=== PATIENT | female | born 1955 | race Caucasian/White ===

== ENCOUNTER 2017-01-23 18:59 | Emergency (ER) | payer MEDICARE, OTHER ==
[2017-01-23 20:12] LABS: HEMOGLOBIN 12.9 gm/dl (12.3-15.3); RED BLOOD COUNT 4.26 M/UL (4.00-5.10); WHITE BLOOD COUNT 9.6 K/UL (4.5-11.0)
[2017-01-23 20:31] LABS: BUN/CREATININE RATIO 25 (0-10)
[2017-01-24] MEDS ORDERED: NEURONTIN 300300 MG PO (21:57)
[2017-01-24] MEDS ORDERED: ALPRAZOLAM0.5 MG PO (21:57)
[2017-01-24] MEDS ORDERED: BYDUREON P2 MG/0.65 SQ (21:58)
[2017-01-24] MEDS ORDERED: LORTAB 7.5-3251 EACH PO (21:58)
[2017-01-24] MEDS ORDERED: LOSARTAN POTASS50 MG PO (21:58)
[2017-01-24] MEDS ORDERED: NORVASC 5 MG TAB5 MG PO (21:59)
[2017-01-24] MEDS ORDERED: VENLAFAXINE HC150 M1 PO (21:59)
[2017-01-24] MEDS ORDERED: GLUCOPHAGE1000 MG PO (21:59)
[2017-01-24] MEDS ORDERED: OMEGA 3 FISH O1 EACH PO (22:00)
[2017-01-24] MEDS ORDERED: NIACIN500 MG PO (22:00)
[2017-01-24] MEDS ORDERED: VITAMIN D350000 UNIT PO (22:01)
== END 2017-01-23 22:30 | disposition left against medical advice (07) ==
LOC: ER1 18:59
PROVIDERS: Family Medicine
DX: R53.1 Weakness (principal); I10 Essential (primary) hypertension; E11.9 Type 2 diabetes mellitus without complications; Z79.4 Long term (current) use of insulin; Z79.84 Long term (current) use of oral hypoglycemic drugs; Z79.899 Other long term (current) drug therapy
CPT/HCPCS: 36415; 70450; 71010; 80053; 82550; 82553; 82962; 83874; 84484; 85025; 85610; 85730; 99284

== ENCOUNTER 2017-01-24 12:27 | Inpatient (IN) | payer MEDICARE, OTHER ==
[~2017-01-24] VITALS: Ht 167.6 cm; Wt 108.0 kg
[2017-01-24 13:21] LABS: HEMOGLOBIN 14.5 gm/dl (12.3-15.3); WHITE BLOOD COUNT 10.4 K/UL (4.5-11.0)
[2017-01-24 13:23] LABS: RED BLOOD COUNT 4.76 M/UL (4.00-5.10)
[2017-01-24 13:40] LABS: BUN/CREATININE RATIO 22 (0-10)
[2017-01-24] MEDS ORDERED: NEURONTIN 300300 MG PO (21:57)
[2017-01-24] MEDS ORDERED: ALPRAZOLAM0.5 MG PO (21:57)
[2017-01-24] MEDS ORDERED: BYDUREON P2 MG/0.65 SQ (21:58)
[2017-01-24] MEDS ORDERED: LORTAB 7.5-3251 EACH PO (21:58)
[2017-01-24] MEDS ORDERED: LOSARTAN POTASS50 MG PO (21:58)
[2017-01-24] MEDS ORDERED: NORVASC 5 MG TAB5 MG PO (21:59)
[2017-01-24] MEDS ORDERED: GLUCOPHAGE1000 MG PO (21:59)
[2017-01-24] MEDS ORDERED: VENLAFAXINE HC150 M1 PO (21:59)
[2017-01-24] MEDS ORDERED: OMEGA 3 FISH O1 EACH PO (22:00)
[2017-01-24] MEDS ORDERED: NIACIN500 MG PO (22:00)
[2017-01-24] MEDS ORDERED: VITAMIN D350000 UNIT PO (22:01)
[2017-01-25 05:46] LABS: HEMOGLOBIN 13.1 gm/dl (12.3-15.3); RED BLOOD COUNT 4.33 M/UL (4.00-5.10); WHITE BLOOD COUNT 11.1 K/UL (4.5-11.0)
[2017-01-25 06:02] LABS: BUN/CREATININE RATIO 25 (0-10)
[2017-01-26 05:54] LABS: HEMOGLOBIN 12.7 gm/dl (12.3-15.3); RED BLOOD COUNT 4.17 M/UL (4.00-5.10); WHITE BLOOD COUNT 11.2 K/UL (4.5-11.0)
[2017-01-26 06:17] LABS: BUN/CREATININE RATIO 26 (0-10)
[2017-01-27 05:02] LABS: HEMOGLOBIN 12.1 gm/dl (12.3-15.3); RED BLOOD COUNT 4.09 M/UL (4.00-5.10); WHITE BLOOD COUNT 9.3 K/UL (4.5-11.0)
[2017-01-27 05:21] LABS: BUN/CREATININE RATIO 28 (0-10)
[2017-01-28 06:03] LABS: HEMOGLOBIN 12.4 gm/dl (12.3-15.3); RED BLOOD COUNT 4.08 M/UL (4.00-5.10); WHITE BLOOD COUNT 9.8 K/UL (4.5-11.0)
[2017-01-28 06:19] LABS: BUN/CREATININE RATIO 28 (0-10)
--- NOTE | 2017-01-30 05:37 | NUR ---
1900- PT REFUSES ORAL CARE, INFORMED OF IMPORTANCE AND PT VERBALIZED UNDERSTANDING. SPOUSE AT BEDSIDE.
== END 2017-01-30 16:53 | DRG 65 ==
LOC: ER1 12:27 → MED SURG 4 16:19 → ZEROF 16:19 → MED SURG 4 20:21
PROVIDERS: Physician Assistant; Radiology Radiation Oncology; ADMIT Internal Medicine
PROC: 3E0G76Z Introduction of Nutritional Substance into Upper GI, Via Natural or Artificial Opening (ICD-10-PCS; principal; 2017-01-26)
PROC: 0DH67UZ Insertion of Feeding Device into Stomach, Via Natural or Artificial Opening (ICD-10-PCS; principal; 2017-01-26)
DX: I63.232 Cerebral infarction due to unspecified occlusion or stenosis of left carotid arteries (principal); G81.94 Hemiplegia, unspecified affecting left nondominant side; I69.391 Dysphagia following cerebral infarction; R13.12 Dysphagia, oropharyngeal phase; I10 Essential (primary) hypertension; M51.36 Other intervertebral disc degeneration, lumbar region; E87.6 Hypokalemia; E78.5 Hyperlipidemia, unspecified; E78.1 Pure hyperglyceridemia; E11.9 Type 2 diabetes mellitus without complications; R01.1 Cardiac murmur, unspecified; Z68.38 Body mass index [BMI] 38.0-38.9, adult; F41.9 Anxiety disorder, unspecified; E66.9 Obesity, unspecified; Z91.81 History of falling; Z79.891 Long term (current) use of opiate analgesic; Z79.84 Long term (current) use of oral hypoglycemic drugs; Z79.899 Other long term (current) drug therapy; Z82.49 Family history of ischemic heart disease and other diseases of the circulatory system; Z80.8 Family history of malignant neoplasm of other organs or systems
CPT/HCPCS: ECHO; 36415; 70450; 70544; 70551; 71010; 74230; 80048; 80053; 80061; 81001; 82550; 82553; 82962; 83036; 83735; 83874; 84132; 84484; 85025; 85027; 85610; 85730; 92526; 92610; 92611-GN; 93005; 93306; 93880; 94640; 97110; 97112; 97116; 97530; 99284; 99285; J7030; J7040